=== PATIENT | female | born 2000 | race Caucasian/White ===

== ENCOUNTER → 2023-05-26 07:46 | Outpatient (REF) | payer OTHER, SELFPAY | LOC: RAD 07:46 | PROVIDERS: ATTENDING PHYSICIAN Surgery; FAMILY PHYSICIAN Family Medicine | DX: K59.09 Other constipation (principal) | CPT/HCPCS: 74270 ==

== ENCOUNTER 2023-09-05 06:21 | Outpatient (RCR) | payer SELFPAY | END 2023-09-05 23:59 | disposition home or self-care (01) | LOC: RPT 06:21 | PROVIDERS: ATTENDING PHYSICIAN Obstetrics & Gynecology; FAMILY PHYSICIAN Family Medicine | DX: N81.6 Rectocele (principal); K46.9 Unspecified abdominal hernia without obstruction or gangrene; M62.89 Other specified disorders of muscle; R10.2 Pelvic and perineal pain; N80.9 Endometriosis, unspecified; M62.81 Muscle weakness (generalized); R27.8 Other lack of coordination; M62.838 Other muscle spasm | CPT/HCPCS: 97163; 97530 ==

== ENCOUNTER 2023-10-19 09:55 | Outpatient (RCR) | payer SELFPAY | END 2023-10-19 23:59 | disposition home or self-care (01) | LOC: RPT 09:55 | PROVIDERS: ATTENDING PHYSICIAN Obstetrics & Gynecology; FAMILY PHYSICIAN Family Medicine | DX: N81.6 Rectocele (principal); K46.9 Unspecified abdominal hernia without obstruction or gangrene; M62.89 Other specified disorders of muscle; R10.2 Pelvic and perineal pain; N80.9 Endometriosis, unspecified; Z73.6 Limitation of activities due to disability | CPT/HCPCS: 97140; 97530 ==

== ENCOUNTER 2023-11-16 07:17 | Outpatient (RCR) | payer SELFPAY | END 2023-11-16 23:59 | disposition home or self-care (01) | LOC: RPT 07:17 | PROVIDERS: ATTENDING PHYSICIAN Obstetrics & Gynecology; FAMILY PHYSICIAN Family Medicine | DX: N81.6 Rectocele (principal); K46.9 Unspecified abdominal hernia without obstruction or gangrene; M62.89 Other specified disorders of muscle; R10.2 Pelvic and perineal pain; N80.9 Endometriosis, unspecified; Z73.6 Limitation of activities due to disability; M62.81 Muscle weakness (generalized); R27.8 Other lack of coordination; M62.838 Other muscle spasm; K59.09 Other constipation | CPT/HCPCS: 97140; 97530 ==

== ENCOUNTER 2023-12-21 09:15 | Outpatient (RCR) | payer SELFPAY | END 2023-12-21 23:59 | disposition home or self-care (01) | LOC: RPT 09:15 | PROVIDERS: ATTENDING PHYSICIAN Obstetrics & Gynecology; FAMILY PHYSICIAN Family Medicine | DX: N81.6 Rectocele (principal); K46.9 Unspecified abdominal hernia without obstruction or gangrene; M62.89 Other specified disorders of muscle; R10.2 Pelvic and perineal pain; N80.9 Endometriosis, unspecified; Z73.6 Limitation of activities due to disability | CPT/HCPCS: 97014; 97140; 97530 ==

== ENCOUNTER 2024-01-18 08:51 | Outpatient (RCR) | payer OTHER, SELFPAY | END 2024-01-18 23:59 | disposition home or self-care (01) | LOC: RPT 08:51 | PROVIDERS: ATTENDING PHYSICIAN Obstetrics & Gynecology; FAMILY PHYSICIAN Family Medicine | DX: N81.6 Rectocele (principal); K46.9 Unspecified abdominal hernia without obstruction or gangrene; M62.89 Other specified disorders of muscle; R10.2 Pelvic and perineal pain; N80.9 Endometriosis, unspecified; Z73.6 Limitation of activities due to disability; M62.81 Muscle weakness (generalized); R27.8 Other lack of coordination; M62.838 Other muscle spasm | CPT/HCPCS: 97140; 97530 ==

== ENCOUNTER 2024-02-17 06:47 | Outpatient (RCR) | payer SELFPAY | END 2024-02-17 23:59 | disposition home or self-care (01) | LOC: RPT 06:47 | PROVIDERS: ATTENDING PHYSICIAN Obstetrics & Gynecology; FAMILY PHYSICIAN Family Medicine | DX: N81.6 Rectocele (principal); K46.9 Unspecified abdominal hernia without obstruction or gangrene; M62.89 Other specified disorders of muscle; R10.2 Pelvic and perineal pain; N80.9 Endometriosis, unspecified; Z73.6 Limitation of activities due to disability; M62.81 Muscle weakness (generalized); R27.8 Other lack of coordination; M62.838 Other muscle spasm | CPT/HCPCS: 97140; 97530 ==

== ENCOUNTER 2024-03-21 08:59 | Outpatient (RCR) | payer SELFPAY | END 2024-03-21 23:59 | disposition home or self-care (01) | LOC: RPT 08:59 | PROVIDERS: ATTENDING PHYSICIAN Obstetrics & Gynecology; FAMILY PHYSICIAN Family Medicine | DX: N81.6 Rectocele (principal); K46.9 Unspecified abdominal hernia without obstruction or gangrene; M62.89 Other specified disorders of muscle; R10.2 Pelvic and perineal pain; N80.9 Endometriosis, unspecified; Z73.6 Limitation of activities due to disability; M62.81 Muscle weakness (generalized); R27.8 Other lack of coordination; M62.838 Other muscle spasm; K59.00 Constipation, unspecified | CPT/HCPCS: 97140; 97530 ==

== ENCOUNTER 2024-03-28 08:51 | Outpatient (RCR) | payer SELFPAY | END 2024-03-28 23:59 | disposition home or self-care (01) | LOC: RPT 08:51 | PROVIDERS: ATTENDING PHYSICIAN Obstetrics & Gynecology; FAMILY PHYSICIAN Family Medicine | DX: N81.6 Rectocele (principal); K46.9 Unspecified abdominal hernia without obstruction or gangrene; M62.89 Other specified disorders of muscle; R10.2 Pelvic and perineal pain; N80.9 Endometriosis, unspecified; Z73.6 Limitation of activities due to disability; M62.81 Muscle weakness (generalized); R27.8 Other lack of coordination; M62.838 Other muscle spasm; K59.00 Constipation, unspecified | CPT/HCPCS: 97140; 97530 ==

== ENCOUNTER 2024-05-16 13:15 | Outpatient (RCR) | payer SELFPAY | END 2024-05-16 23:59 | disposition home or self-care (01) | LOC: RPT 13:15 | PROVIDERS: ATTENDING PHYSICIAN Obstetrics & Gynecology; FAMILY PHYSICIAN Family Medicine | DX: N81.6 Rectocele (principal); K46.9 Unspecified abdominal hernia without obstruction or gangrene; M62.89 Other specified disorders of muscle; R10.2 Pelvic and perineal pain; N80.9 Endometriosis, unspecified; Z73.6 Limitation of activities due to disability; M62.81 Muscle weakness (generalized); R27.8 Other lack of coordination; M62.838 Other muscle spasm; K59.00 Constipation, unspecified; R35.0 Frequency of micturition; R39.15 Urgency of urination | CPT/HCPCS: 97110; 97140; 97530 ==

== ENCOUNTER 2024-06-13 12:19 | Outpatient (RCR) | payer SELFPAY | END 2024-06-13 23:59 | disposition home or self-care (01) | LOC: RPT 12:19 | PROVIDERS: ATTENDING PHYSICIAN Obstetrics & Gynecology; FAMILY PHYSICIAN Family Medicine | DX: N81.6 Rectocele (principal); K46.9 Unspecified abdominal hernia without obstruction or gangrene; M62.89 Other specified disorders of muscle; R10.2 Pelvic and perineal pain; N80.9 Endometriosis, unspecified; Z73.6 Limitation of activities due to disability; M62.81 Muscle weakness (generalized); R27.8 Other lack of coordination; M62.838 Other muscle spasm; K59.00 Constipation, unspecified; R35.0 Frequency of micturition; R39.15 Urgency of urination | CPT/HCPCS: 97140; 97530 ==

== ENCOUNTER 2024-06-27 09:54 | Outpatient (RCR) | payer SELFPAY | END 2024-06-27 23:59 | disposition home or self-care (01) | LOC: RPT 09:54 | PROVIDERS: ATTENDING PHYSICIAN Obstetrics & Gynecology; FAMILY PHYSICIAN Family Medicine | DX: N81.6 Rectocele (principal); K46.9 Unspecified abdominal hernia without obstruction or gangrene; M62.89 Other specified disorders of muscle; R10.2 Pelvic and perineal pain; N80.9 Endometriosis, unspecified; Z73.6 Limitation of activities due to disability; M62.81 Muscle weakness (generalized); R27.8 Other lack of coordination; M62.838 Other muscle spasm; K59.00 Constipation, unspecified; R35.0 Frequency of micturition; R39.15 Urgency of urination | CPT/HCPCS: 97112; 97140; 97530 ==